=== PATIENT | female | born 1995 | race Caucasian/White ===

== ENCOUNTER → 2022-10-10 | Outpatient (CLI) | payer OTHER ==
--- NOTE | 2022-10-10 11:31 | US ---
EXAMINATION TYPE: US mass soft tissue chest/back DATE OF EXAM: 10/10/2022 COMPARISON: NONE CLINICAL INDICATION: Female, 27 years old with history of D17.1 BENIGN LIPOMATOUS NEOPLASM OF SKIN, S UBCU OF; Palpable/painful lump right lower back x 1 year TECHNIQUE: Multiple grayscale ultrasound images of the right lower back in the patient's region of pa lpable abnormality were obtained. FINDINGS/IMPRESSION: No solid or cystic mass identified in the patient's region of palpable abnormal ity. No organized fluid collections. No ultrasound evidence for abnormality corresponding to patient' s symptomology.
== END | disposition home or self-care (01) ==
LOC: RADUSWWP 10:44
PROVIDERS: ATTEND Surgery
DX: D17.1 Benign lipomatous neoplasm of skin and subcutaneous tissue of trunk (principal)